=== PATIENT | male | born 1935 | race Caucasian/White ===

== ENCOUNTER 2024-01-14 09:49 | Day surgery (SDC) | payer MEDICARE ==
[2024-01-14] VITALS (7 sets, daily range): BP systolic 118–144; BP diastolic 51–69; PULSE 70–78; TEMP 97.4–98.4
[~2024-01-14] VITALS: Ht 180.3 cm; Wt 84.8 kg
[~2024-01-14 09:49] MED LIST: BACTRIM DS 8001 TAB PO; FLOMAX 0.40.4 MG/CAP PO; LR 1,000 ML IV SCH; PRAVACHOL 20MG20 MG PO; SALINE NASAL 4444 ML NS; ZITHROMAX 250M250 MG PO
[2024-01-14] MEDS ORDERED: Lidocaine PF 2% (20 MG/ML) 5 ML VIAL ONE (11:28)
[2024-01-14] MEDS ORDERED: NS 10 ML IV ONE (11:28)
[2024-01-14] MEDS ORDERED: Lidocaine 1% w EPI (1:100,000) 30 ML Multi-Dose VIAL IJ ONE (11:58)
[2024-01-14] MEDS ORDERED: Bacitracin Topical Oint 30 GM TUBE TOP ONE (11:58)
--- NOTE | 2024-01-14 12:09 | NUR ---
PATIENT RETURNED TO ROOM 6 VIA CART, ALERT AND ORIENTED X3. DENIES PAIN, NAUSEA AND SHORTNESS OF BREATH. BREATHING REGULAR AND UNLABORED ON ROOM AIR. SKIN WARM AND DRY. HANDOFF COMPLETED IN ROOM BY DECLAN SUTHERLAND AND KIERAN Riggins CRNA. STITCHES PRESENT TO PENIS, SITE IS CLEAN AND DRY WITH STITCHES INTACT. NO DRESSING IN PLACE. PATIENT HAS NO COMPLAINTS. 1221: BLOOD SUGAR 161 PATIENT HAD WATER, VANILLA PUDDING AND A MUFFIN. BOTH FOOD AND DRINK TOLERATED WELL WITH NO DYSPHAGIA. CALL LIGHT IN REACH. SPOUSE (BEE) AND SON (NOEMÍ) PRESENT IN ROOM.
--- NOTE | 2024-01-14 12:15 | NUR ---
PATIENT VOIDED 300 MLS OF URINE. URINE BLOOD TINGED. NO CLOTS.
--- NOTE | 2024-01-14 14:08 | NUR ---
1300: PATIENT AMBULATED TO RESTROOM WITH STEADY GAIT AND HAD A BOWEL MOVEMENT. UROLOGY OFFICE CONFIRMED A FOLLOW UP APPOINTMENT HAD ALREADY BEEN MADE FOR PATIENT TO BE SEEN IN [place]. PATIENT INFORMED OF APPOINTMENT DETAILS. 1358: PATIENT DENIES PAIN, NAUSEA AND SHORTNESS OF BREATH. TOLERATING FOOD AND DRINK. IV REMOVED. GAUZE AND COBAN PLACED OVER SITE. 1359: DISCHARGE TEACHING COMPLETED WITH PRINTED EDUCATION AND INSTRUCTIONS SENT HOME WITH PATIENT AND FAMILY. PATIENT AND FAMILY VERBALIZED UNDERSTANDING OF TEACHING. 1408: PATIENT CHANGED INTO PERSONAL CLOTHING AND DISCHARGED HOME WITH SON TRANSPORT.
[2024-01-14] MEDS ORDERED: BASAGLAR K100 UNIT/1 SQ (15:13)
[2024-01-14] MEDS ORDERED: PRINIVIL20 MG PO (15:14)
[2024-01-14] MEDS ORDERED: FARXIGA5 PO (15:14)
[2024-01-14] MEDS ORDERED: GLUCOPHAGE500 MG/TAB PO (15:15)
== END 2024-01-14 14:08 | disposition home or self-care (01) ==
LOC: SDCO 09:49
DX: N47.1 Phimosis (principal); N39.43 Post-void dribbling; N40.1 Benign prostatic hyperplasia with lower urinary tract symptoms; N13.8 Other obstructive and reflux uropathy; I10 Essential (primary) hypertension; Z87.891 Personal history of nicotine dependence; Z87.440 Personal history of urinary (tract) infections
CPT/HCPCS: J0665; J0690; J2704; J7120